=== PATIENT | male | born 1965 | race Two or more races ===

== ENCOUNTER 2025-07-07 08:30 | Emergency (ER) | payer OTHER ==
[~2025-07-07] VITALS: Ht 175.3 cm; Wt 83.0 kg
[2025-07-07 08:38] VITALS: BP 125/94; O2SAT 99
[2025-07-07] MEDS ORDERED: HYDROCHLOROTHIA25 MG PO (08:40)
[2025-07-07] MEDS ORDERED: AMLODIPINE-OLM1 EAC3 PO (08:40)
[2025-07-07] MEDS ORDERED: VYVANSE30 MG PO (08:42)
[2025-07-07] MEDS ORDERED: ACETAMINOPHEN 500 MG GEL..CAP PO ONE ×2 (09:30→09:45)
[2025-07-07] MEDS ORDERED: DEXAMETHASONE SODIUM PHOSPHATE 4 MG/ML VIAL IM ONE (09:30)
[2025-07-07] MEDS ORDERED: OFLOXACIN 0.3% 5ML DROPS (OTIC) OT ONE (09:30)
[2025-07-07] MEDS ORDERED: ACETIC ACID15 ML OTIC (09:42)
[2025-07-07] MEDS ORDERED: DRAMAMINE LESS25 MG PO (09:42)
[2025-07-07] MEDS ORDERED: DEXAMETHASONE SODIUM PHOSPHATE 4 MG/ML VIAL ONE (09:45)
[2025-07-07] MEDS ORDERED: CIPROFLOXACIN HCL 0.175 MG/DR DROPS OTIC ONE (10:00)
== END 2025-07-07 10:22 | disposition home or self-care (01) ==
LOC: ER 08:31
DX: H92.03 Otalgia, bilateral (principal); I10 Essential (primary) hypertension